=== PATIENT | female | born 1960 | race African-American/Black ===

== ENCOUNTER 2016-05-19 06:49 | Emergency (ER) | payer SELFPAY ==
--- NOTE | 2016-05-19 08:04 | ER Document Report ---
ED Oral Problem - General Mode of Arrival: Ambulatory Information source: Patient TRAVEL OUTSIDE OF THE U.S[place] IN LAST 30 DAYS: No - HPI Patient complains to provider of: Toothache Associated symptoms: Other - See above - General Chief Complaint: Toothache Stated Complaint: TOOTHACHE Notes: Patient is a 56 year old female, with a past medical history including COPD, who presents to the emergency department complaining of a toothache. Patient states that she has three teeth that have been painful. Patient has consistently had high blood pressure when seen at the emergency department for the last few years, patient reports this is due to the stress of coming to this location and reports she has a home blood pressure monitor which she can use. ( DONG LUIS) - Related Data Allergies/Adverse Reactions: No Known Allergies Allergy (Verified 05/19/16 06:59) Past Medical History - General Information source: Patient - Social History Smoking Status: Never Smoker Chew tobacco use (# tins/day): No Frequency of alcohol use: Occasional Drug Abuse: None Family History: Reviewed & Not Pertinent, Arthritis, CAD, DM, Hyperlipidemia, Malignancy Patient has suicidal ideation: No Patient has homicidal ideation: No - Past Medical History Cardiac Medical History: Pulmonary Medical History: Reports: Hx Asthma, Hx Bronchitis, Hx COPD Musculoskeltal Medical History: Reports Hx Arthritis, Reports Hx Muscle Spasm Past Surgical History: Reports: Hx Abdominal Surgery - hernia, Hx Section, Hx Gynecologic Surgery - hyst/ x1, Hx Herniorrhaphy - Umbilical hernia repair, Hx Hysterectomy, Hx Orthopedic Surgery - ganglian cyst l wrist - Immunizations Immunizations up to date: Yes Hx Diphtheria, Pertussis, Tetanus Vaccination: Yes Review of Systems - Review of Systems Constitutional: No symptoms reported EENT: See HPI, Dental problem Cardiovascular: No symptoms reported Respiratory: No symptoms reported Gastrointestinal: No symptoms reported Genitourinary: No symptoms reported Female Genitourinary: No symptoms reported Musculoskeletal: No symptoms reported Skin: No symptoms reported Hematologic/Lymphatic: No symptoms reported Neurological/Psychological: No symptoms reported -: Yes All other systems reviewed and negative Physical Exam - Vital signs Interpretation: Normal - General General appearance: Appears well, Alert - HEENT Head: Normocephalic, Atraumatic Mouth/Lips: Other - Right upper lateral incisor is borken off at the gum line, decayed, and tender. Both lower third molars are decayed and tender - Respiratory Respiratory status: No respiratory distress Chest status: Nontender Breath sounds: Normal Chest palpation: Normal - Cardiovascular Rhythm: Regular Heart sounds: Normal auscultation Murmur: No - Back Back: Normal, Nontender - Extremities General upper extremity: Normal inspection, Normal ROM, Normal strength General lower extremity: Normal inspection, Normal ROM, Normal strength, Normal weight bearing - Neurological Neuro grossly intact: Yes Cognition: Normal Orientation: AAOx4 [place]elyn Coma Scale Eye Opening: Spontaneous Madelyn Coma Scale Verbal: Oriented [place] Coma Scale Motor: Obeys Commands Madelyn Coma Scale Total: 15 Speech: Normal Motor strength normal: LUE, RUE, LLE, RLE - Psychological Associated symptoms: Normal affect, Normal mood - Skin Skin Temperature: Warm Skin Moisture: Dry Skin Color: Normal - Vital signs Vitals: Temp Pulse Resp BP Pulse Ox 98.3 F 92 18 158/99 H 98 05/19/16 06:54 05/19/16 06:54 05/19/16 06:54 05/19/16 06:54 05/19/16 06:54 (HARINDER GUILLEN) (DONG LUIS) Discharge - Discharge Clinical Impression: Dental decay High blood pressure Qualifiers: Hypertension type: essential hypertension Qualified Code(s): I10 - Essential ( primary) hypertension Additional Instructions: Dental Infection or Abscess: You have an infection, perhaps an abscess (pus formation) of the gum around one of your teeth, which is probably decayed. If there is an abscess, it may drain on its own or it may need to be opened or lanced. Severe swelling or drainage around a tooth usually means a deep dental abscess which usually requires evaluation and treatment by a dentist or oral surgeon. Antibiotics may be prescribed while awaiting dental treatment. If you develop high fever with chills, worsening pain, or increasing swelling in the area, see a dentist or oral surgeon immediately or return to the Emergency Department immediately. High Blood Pressure: When your blood pressure was taken today it was elevated. Today's reading was__158/99_. Pre-hypertension/Hypertension: The patient has been informed that they may have pre-hypertension or Hypertension based on a blood pressure reading in the emergency department. I recommend that the patient call the primary care provider listed on their dischargge instructions or a physician of their choice this wee to arrage follow up for further evaluation of possible pre- hypertension or Hypertension. Sometimes, stress or illness causes a temporary elevation of your blood pressure. We suggest that you get your blood pressure measured three more times during the next few days to see if this is more than a temporary abnormality. If your blood pressure is greater than 150/90 on each occasion, you must have treatment. Some simple things you can do to help are: If you have blood pressure medicine but aren't using it regularly, start taking it again. Get some aerobic exercise for at least 20 minutes on a daily basis. (See your doctor before beginning a new exercise program.) Eat a low-fat diet. Lose excess weight. Avoid salty foods and avoid adding salt to any of the foods you eat. Avoid diet pills, decongestants, "energizing" herbs, and other medicines that elevate blood pressure. If left untreated, hypertension greatly enhances your risk for developing heart disease and strokes. Please don't ignore this problem. TAKE THE MEDICATION PRESCRIBED FOR DENTAL INFECTION. TAKE MOTRIN OR ALEVE FOR PAIN. YOUR BLOOD PRESSURE HAS BEEN ELEVATED WHEN YOU COME TO THE ER FOR SEVERAL YEARS. CHECK YOUR BLOOD PRESSURE AT HOME, IF IT REMAINS HIGH YOU SHOULD SEE A LOCAL MEDICAL DOCTOR FOR TREATMENT. FOLLOW UP WITH A DENTIST TO TREAT YOUR DENTAL DISEASE. RETURN TO THE EMERGENCY ROOM IF ANY NEW OR WORSENING SYMPTOMS. Prescriptions: Penicillin V Potassium [Penicillin Vk 500 mg Tablet] 500 mg PO QID #28 tablet Scribe Attestation: 05/19/16 08:08 I personally performed the services described in the documentation, reviewed and edited the documentation which was dictated to the scribe in my presence, and it accurately records my words and actions. (HARINDER GUILLEN) Scribe Documentation - Scribe Written by Rema:: REMA MEYERS 05/19/16814 Acting as scribe for: Dr. Guillen (DONG LUIS)
[2016-05-19 08:39] VITALS: BP 138/98
== END 2016-05-19 08:39 | disposition home or self-care (01) ==
LOC: ER 06:49
DX: K02.9 Dental caries, unspecified (principal); I10 Essential (primary) hypertension; K08.89 Other specified disorders of teeth and supporting structures; J44.9 Chronic obstructive pulmonary disease, unspecified
CPT/HCPCS: 99282

== ENCOUNTER 2017-01-24 09:13 | Emergency (ER) | payer SELFPAY ==
[2017-01-24] MEDS ORDERED: PENICILLIN V POTASSIUM 500 MG TABLET PO ONE (10:19)
[2017-01-24] MEDS ORDERED: LIDOCAINE 2% VISCOUS SOLN 20 ML UDCUP PO ONE (10:19)
--- NOTE | 2017-01-24 10:30 | ER Document Report ---
ED Oral Problem - General Chief Complaint: Mouth Problem Stated Complaint: MOUTH PAIN Time Seen by Provider: 01/24/17 10:09 Mode of Arrival: Ambulatory Information source: Patient Notes: 56-year-old female presents to ED for complaint of pain in her left lower jaw for a cavity that has been there for over a month with pain off and on. She is patient states she just needs antibiotics she does not need pain medicine she has pain medicine. TRAVEL OUTSIDE OF THE U.S[place] IN LAST 30 DAYS: No - HPI Patient complains to provider of: Toothache Onset: Other - Over a month Onset: Gradual Quality of pain: Sharp - Sharp at times states she is not having pain at this moment Severity: Moderate Pain Level: 3 - None at this time Associated symptoms: Toothache - Cavity Worsened by: Cold Similar symptoms previously: Yes Recently seen / treated by doctor/dentist: No - Related Data Allergies/Adverse Reactions: No Known Allergies Allergy (Verified 01/24/17 09:16) Past Medical History - General Information source: Patient - Social History Smoking Status: Former Smoker Cigarette use (# per day): No Chew tobacco use (# tins/day): No Smoking Education Provided: No Frequency of alcohol use: None Drug Abuse: None Lives with: Alone Family History: Reviewed & Not Pertinent, Arthritis, CAD, DM, Hyperlipidemia, Malignancy. denies: COPD, CVA Patient has suicidal ideation: No Patient has homicidal ideation: No - Past Medical History Cardiac Medical History: Reports: None Pulmonary Medical History: Reports: Hx Asthma, Hx Bronchitis, Hx COPD EENT Medical History: Reports: None Neurological Medical History: Reports: None Endocrine Medical History: Reports: None Renal/ Medical History: Reports: None Malignancy Medical History: Reports: None GI Medical History: Reports: None Musculoskeltal Medical History: Reports Hx Arthritis, Reports Hx Muscle Spasm Skin Medical History: Reports None Psychiatric Medical History: Reports: None Traumatic Medical History: Reports: None Infectious Medical History: Reports: None Past Surgical History: Reports: Hx Abdominal Surgery - hernia, Hx Section, Hx Gynecologic Surgery - hyst/ x1, Hx Herniorrhaphy - Umbilical hernia repair, Hx Hysterectomy, Hx Orthopedic Surgery - ganglian cyst l wrist - Immunizations Immunizations up to date: Yes Hx Diphtheria, Pertussis, Tetanus Vaccination: Yes Review of Systems - Review of Systems Constitutional: No symptoms reported EENT: Dental problem Cardiovascular: No symptoms reported Respiratory: No symptoms reported Gastrointestinal: No symptoms reported Genitourinary: No symptoms reported Female Genitourinary: No symptoms reported Musculoskeletal: No symptoms reported Skin: No symptoms reported Hematologic/Lymphatic: No symptoms reported Neurological/Psychological: No symptoms reported -: Yes All other systems reviewed and negative Physical Exam - Vital signs Vitals: Temp Pulse Resp BP Pulse Ox 98.8 F 89 18 175/115 H 98 01/24/17 09:01/24/17 09:01/24/17 09:01/24/17 09:01/24/17 09:15 Interpretation: Normal - General General appearance: Appears well, Alert - HEENT Head: Normocephalic, Atraumatic Eyes: Normal Pupils: PERRL Mouth/Lips: Caries - Left lower jaw cavity Pharynx: Normal Neck: Normal - Respiratory Respiratory status: No respiratory distress Chest status: Nontender Breath sounds: Normal Chest palpation: Normal - Cardiovascular Rhythm: Regular Heart sounds: Normal auscultation Murmur: No - Abdominal Inspection: Normal Distension: No distension Bowel sounds: Normal Tenderness: Nontender Organomegaly: No organomegaly - Back Back: Normal, Nontender - Extremities General upper extremity: Normal inspection, Nontender, Normal color, Normal ROM , Normal temperature General lower extremity: Normal inspection, Nontender, Normal color, Normal ROM , Normal temperature, Normal weight bearing. No: Cyndi's sign - Neurological Neuro grossly intact: Yes Cognition: Normal Orientation: AAOx4 [place] Coma Scale Eye Opening: Spontaneous Madelyn Coma Scale Verbal: Oriented [place] Coma Scale Motor: Obeys Commands Madelyn Coma Scale Total: 15 Speech: Normal Motor strength normal: LUE, RUE, LLE, RLE Sensory: Normal - Psychological Associated symptoms: Normal affect, Normal mood - Skin Skin Temperature: Warm Skin Moisture: Dry Skin Color: Normal Course - Re-evaluation Re-evalutation: 01/24/17 11:42 Patient was treated with Pen-Vee K and she was offered lidocaine viscus for her to see put some on her tooth and and said she did not want any more of that and through the rest of it away. She states she can take her pain medicine for her tooth. Patient was instructed to follow-up with a dentist to get this tooth treated as it would not go away with the antibiotics that was just a temporary fix. - Vital Signs Vital signs: Temp Pulse Resp BP Pulse Ox 98.6 F 72 18 160/96 H 97 01/24/17 10:32 01/24/17 10:32 01/24/17 10:32 01/24/17 10:32 01/24/17 10:32 Discharge - Discharge Clinical Impression: Pain due to dental caries Condition: Stable Disposition: HOME, SELF-CARE Additional Instructions: TOOTHACHE: Your pain is due to dental decay. The tooth must be repaired in order for you to feel better. You will, therefore, be referred to a dentist. We do not have dentists on the staff at [facility]. Severe swelling or drainage around a tooth usually means a dental abscess. This also requires evaluation and treatment by the dentist, but antibiotics may be prescribed while awaiting dental treatment. You should be rechecked immediately if you develop major swelling of the face, increasing pain, a lump in the jaw or gums, headache, difficulty swallowing, or fever. PENICILLIN V K: You have been given a prescription for Penicillin VK. Your physician has determined that this is the best antibiotic for your condition. Pen VK can be taken with meals, however more of the antibiotic gets into the bloodstream if it's taken on an empty stomach. Penicillin usually has no side effects. However, allergy to penicillins is common. If you have had an allergic reaction to any drug of the penicillin family, you should never take any other penicillin. Notify your doctor at once if you develop hives, itching, swelling, faintness, or shortness of breath. Apply a small amount of lidocaine to the affected tooth every 3-4 hours as needed for pain. This will make your lips and sometimes her tongue a little bit numb so be careful eating after using this. Be sure to follow-up with the dentist as soon as possible. Please take all antibiotics as prescribed until they are all gone. FOLLOW-UP CARE: You have been referred for follow-up care to the dentists listed below. Call the dentists office for an appointment as you were instructed or within the next two days. If you experience worsening or a significant change in your symptoms, notify the physician immediately or return to the Emergency Department at any time for re-evaluation. [facility] [address] Sunday mornings, by appointment [place] [id number] [place] [address] [facility] [address] [facility] [address] [facility] [address] [email or web address] [address] [place] [address] Sunday- 8:00am to 5:00 pm Will see patients from other [facility]. Charges based on income and family size and accepts Medicare, Medicaid, and Insurances Will pull molars [facility] [address] Hours of Operation 8:00 am - 4:30 pm weekdays The following dental offices accept Medicaid: [facility] Dr. Almonte Dr. Salgado Dr. Ma Dr. Miguel Marcelino Dal[place], Kelly, and Harriet oral surgery Dr. Gordon ([place]) Dr. Hammond ([place]) [facility] Drs. Sawant ([place]) Dr. Ji ([place]) [facility] Dr. Guzman ([place]) Drs. Aguilar and ([place]) Medicaid Care Line Prescriptions: Penicillin V Potassium [Penicillin Vk 500 mg Tablet] 500 mg PO BID #20 tablet
[2017-01-24 10:37] VITALS: BP 160/96
== END 2017-01-24 10:37 | disposition home or self-care (01) ==
LOC: ER 09:13
DX: K02.9 Dental caries, unspecified (principal); K08.89 Other specified disorders of teeth and supporting structures; R68.84 Jaw pain; Z87.891 Personal history of nicotine dependence
CPT/HCPCS: 99282; J3490

== ENCOUNTER 2017-07-10 05:10 | Emergency (ER) | payer SELFPAY ==
--- NOTE | 2017-07-10 07:27 | ER Document Report ---
ED General - General Chief Complaint: Toothache Stated Complaint: TOOTHACHE Time Seen by Provider: 07/10/17 06:35 Mode of Arrival: Ambulatory Information source: Patient Notes: 57-year-old female history of poor dentition presents with complaints of dental pain .Pt denies any swelling , denies any diffiuclty swallowing or breathing. pt notes she just needs antibiotics, states pain is controlled TRAVEL OUTSIDE OF THE [place] IN LAST 30 DAYS: No - HPI Onset: Last week Onset/Duration: Persistent Quality of pain: Achy Severity: Mild Pain Level: 1 Associated symptoms: Other Exacerbated by: Denies Relieved by: Denies Similar symptoms previously: Yes Recently seen / treated by doctor: No - Related Data Allergies/Adverse Reactions: No Known Allergies Allergy (Verified 01/24/17 09:16) Past Medical History - Social History Smoking Status: Former Smoker Cigarette use (# per day): No Chew tobacco use (# tins/day): No Smoking Education Provided: No Frequency of alcohol use: Occasional Family History: Reviewed & Not Pertinent, Arthritis, CAD, DM, Hyperlipidemia, Malignancy. denies: COPD, CVA Patient has suicidal ideation: No Patient has homicidal ideation: No - Past Medical History Cardiac Medical History: Pulmonary Medical History: Reports: Hx Asthma, Hx Bronchitis, Hx COPD Renal/ Medical History: Denies: Hx Peritoneal Dialysis Musculoskeltal Medical History: Reports Hx Arthritis, Reports Hx Muscle Spasm Past Surgical History: Reports: Hx Abdominal Surgery - hernia, Hx Section, Hx Gynecologic Surgery - hyst/ x1, Hx Herniorrhaphy - Umbilical hernia repair, Hx Hysterectomy, Hx Orthopedic Surgery - ganglian cyst l wrist - Immunizations Immunizations up to date: Yes Hx Diphtheria, Pertussis, Tetanus Vaccination: Yes Review of Systems - Review of Systems Notes: REVIEW OF SYSTEMS: CONSTITUTIONAL : Denies fever, chills, or sweats. Denies recent illness. EENT: Admits to dental pain CARDIOVASCULAR: Denies chest pain. Denies palpitations or racing or irregular heart beat. Denies ankle edema. RESPIRATORY: Denies cough, cold, or chest congestion. Denies shortness of breath, difficulty breathing, or wheezing. GASTROINTESTINAL: Denies abdominal pain or distention. Denies nausea, vomiting , or diarrhea. Denies blood in vomitus, stools, or per rectum. Denies black, tarry stools. Denies constipation. GENITOURINARY: Denies difficulty urinating, painful urination, burning, frequency, blood in urine, or discharge. FEMALE GENITOURINARY: Denies vaginal bleeding, heavy or abnormal periods, irregular periods. Denies vaginal discharge or odor. MUSCULOSKELETAL: Denies back or neck pain or stiffness. Denies joint pain or swelling. SKIN: Denies rash, lesions or sores. HEMATOLOGIC : Denies easy bruising or bleeding. LYMPHATIC: Denies swollen, enlarged glands. NEUROLOGICAL: Denies confusion or altered mental status. Denies passing out or loss of consciousness. Denies dizziness or lightheadedness. Denies headache. Denies weakness or paralysis or loss of use of either side. Denies problems with gait or speech. Denies sensory loss, numbness, or tingling. Denies seizures. PSYCHIATRIC: Denies anxiety or stress. Denies depression, suicidal ideation, or homicidal ideation. ALL OTHER SYSTEMS REVIEWED AND NEGATIVE. PHYSICAL EXAMINATION: GENERAL: Well-appearing, well-nourished and in no acute distress. HEAD: Atraumatic, normocephalic. EYES: Pupils equal round and reactive to light, extraocular movements intact, conjunctiva are normal. ENT: Teeth #22 and 27 tender to palpation overall poor dentition 21 fractured NECK: Normal range of motion, supple without lymphadenopathy LUNGS: Breath sounds clear to auscultation bilaterally and equal. No wheezes rales or rhonchi. HEART: Regular rate and rhythm without murmurs ABDOMEN: Soft, nontender, nondistended abdomen. No guarding, no rebound. No masses appreciated. Female : deferred Musculoskeletal: Normal range of motion, no pitting or edema. No cyanosis. NEUROLOGICAL: Cranial nerves grossly intact. Normal speech, normal gait. Normal sensory, motor exams PSYCH: Normal mood, normal affect. SKIN: Warm, Dry, normal turgor, no rashes or lesions noted. Dictation was performed using [employer] voice recognition software Physical Exam - Vital signs Vitals: Temp Pulse Resp BP Pulse Ox 98.9 F 111 H 16 177/110 H 99 07/10/17 05:13 07/10/17 05:13 07/10/17 05:13 07/10/17 05:13 07/10/17 05:13 Course - Re-evaluation Re-evalutation: 07/10/17 11:04 There are no dental abscesses no swelling noted patient's airways patent she looks well, patient will be started on antibiotics given strict follow-up with her dentist patient denies any other concerns After performing a Medical Screening Examination, I estimate there is LOW risk for a DEEP SPACE INFECTION (e.g., AMEE'S ANGINA OR RETROPHARYNGEAL ABSCESS), MENINGITIS, INTRACRANIAL HEMORRHAGE, or AIRWAY COMPROMISE, thus I consider the discharge disposition reasonable. Also, there is no evidence or peritonitis, sepsis, or toxicity. I have reevaluated this patient multiple times and no significant life threatening changes are noted. The patient and I have discussed the diagnosis and risks, and we agree with discharging home with close follow-up with the understanding that symptoms and presentations can change. We also discussed returning to the Emergency Department immediately if new or worsening symptoms occur. We have discussed the symptoms which are most concerning (e.g., changing or worsening pain, trouble swallowing or breathing, neck stiffness or fever) that necessitate immediate return. - Vital Signs Vital signs: Temp Pulse Resp BP Pulse Ox 98.9 F 86 16 167/98 H 100 07/10/17 05:13 07/10/17 07:33 07/10/17 07:33 07/10/17 07:33 07/10/17 07:33 Discharge - Discharge Clinical Impression: Pain, dental HTN (hypertension) Qualifiers: Hypertension type: essential hypertension Qualified Code(s): I10 - Essential ( primary) hypertension Condition: Stable Disposition: HOME, SELF-CARE Instructions: Penicillin V K ([facility]), Toothache ([facility]) Additional Instructions: Please follow-up with your dentist in 1 week or return immediately if there is any worsening symptoms or any other concerns Prescriptions: Penicillin V Potassium [Penicillin Vk 250 mg Tablet] 500 mg PO Q6 #80 tablet Penicillin V Potassium [Penicillin Vk 500 mg Tablet] 500 mg PO QID #40 tablet
[2017-07-10 07:37] VITALS: BP 167/98
== END 2017-07-10 07:37 | disposition home or self-care (01) ==
LOC: ER 05:10
DX: K08.89 Other specified disorders of teeth and supporting structures (principal); J44.9 Chronic obstructive pulmonary disease, unspecified; I10 Essential (primary) hypertension; Z87.891 Personal history of nicotine dependence
CPT/HCPCS: 99282

== ENCOUNTER 2017-12-29 05:39 | Emergency (ER) | payer SELFPAY ==
--- NOTE | 2017-12-29 07:16 | ER Document Report ---
ED General - General Chief Complaint: Abscess Stated Complaint: POSSIBLE SPIDER BITE Time Seen by Provider: 12/29/17 06:22 TRAVEL OUTSIDE OF THE [place] IN LAST 30 DAYS: No - HPI Patient complains to provider of: Insect bite dental pain Notes: Patient coming in for depressive symptoms. He states and said by ongoing for the past 24 hours has been placing Neosporin on however came in for further evaluation concern for possible abscess formation. Patient denies any fevers chills nausea vomiting diarrhea. Patient also has dental pain. Patient has pain of tooth #28. Patient has a history of poor dentition states that she has an appointment see a dentist in approximately 2 weeks. - Related Data Allergies/Adverse Reactions: No Known Allergies Allergy (Verified 12/29/17 05:40) Past Medical History - Social History Smoking Status: Former Smoker Chew tobacco use (# tins/day): No Drug Abuse: None Family History: Reviewed & Not Pertinent, Arthritis, CAD, DM, Hyperlipidemia, Malignancy. denies: COPD, CVA Patient has suicidal ideation: No Patient has homicidal ideation: No - Past Medical History Cardiac Medical History: Pulmonary Medical History: Reports: Hx Asthma, Hx Bronchitis, Hx COPD Renal/ Medical History: Denies: Hx Peritoneal Dialysis Musculoskeletal Medical History: Reports Hx Arthritis, Reports Hx Muscle Spasm Past Surgical History: Reports: Hx Abdominal Surgery - hernia, Hx Section, Hx Gynecologic Surgery - hyst/ x1, Hx Herniorrhaphy - Umbilical hernia repair, Hx Hysterectomy, Hx Orthopedic Surgery - ganglian cyst l wrist - Immunizations Immunizations up to date: Yes Hx Diphtheria, Pertussis, Tetanus Vaccination: Yes Review of Systems - Review of Systems Constitutional: Other - Dental pain possible abscess EENT: No symptoms reported Cardiovascular: No symptoms reported Respiratory: No symptoms reported Gastrointestinal: No symptoms reported Genitourinary: No symptoms reported Female Genitourinary: No symptoms reported Musculoskeletal: No symptoms reported Skin: No symptoms reported Hematologic/Lymphatic: No symptoms reported Neurological/Psychological: No symptoms reported Physical Exam - Vital signs Vitals: Temp Pulse Resp BP Pulse Ox 98.1 F 89 20 160/99 H 100 12/29/17 05:40 12/29/17 05:40 12/29/17 05:40 12/29/17 05:40 12/29/17 05:40 Interpretation: Normal - General General appearance: Appears well, Alert - HEENT Head: Normocephalic, Atraumatic Eyes: Normal Cornea: Normal Pupils: PERRL Notes: Examination oral mucosa shows a dental fracture tooth #28 however it is nontender to palpation no signs of abscess formation no signs of gingival cellulitis. No swelling airways patent - Respiratory Respiratory status: No respiratory distress Chest status: Nontender Breath sounds: Normal Chest palpation: Normal - Cardiovascular Rhythm: Regular Heart sounds: Normal auscultation Murmur: No - Abdominal Inspection: Normal Distension: No distension Bowel sounds: Normal Tenderness: Nontender Organomegaly: No organomegaly - Back Back: Normal, Nontender - Extremities General upper extremity: Normal inspection, Nontender, Normal color, Normal ROM , Normal temperature General lower extremity: Normal inspection, Nontender, Normal color, Normal ROM , Normal temperature, Normal weight bearing. No: Cyndi's sign - Neurological Neuro grossly intact: Yes Cognition: Normal Orientation: AAOx4 Westhoff Coma Scale Eye Opening: Spontaneous Madelyn Coma Scale Verbal: Oriented Madelyn Coma Scale Motor: Obeys Commands Westhoff Coma Scale Total: 15 Speech: Normal Motor strength normal: LUE, RUE, LLE, RLE Sensory: Normal - Psychological Associated symptoms: Normal affect, Normal mood - Skin Skin Temperature: Warm Skin Moisture: Dry Skin Color: Normal, Other - Patient with insect bite to the right leg lateral mid barroso region but no fluctuance slight erythema proximal 2 cm x 2 cm. Localized reaction no signs of overt infection Course - Re-evaluation Re-evalutation: 12/29/17 13:19 Patient was to have a localized reaction to possible insect bite in the lower extremity. There is no fluctuance no signs of abscess formation. Patient was encouraged to continue to Place Neosporin on the site. Patient with dental pain no signs of dental infection however patient is scheduled to see a dentist will start the patient on Pen-Vee K - Vital Signs Vital signs: Temp Pulse Resp BP Pulse Ox 98.5 F 79 16 141/96 H 99 12/29/17 07:23 12/29/17 07:23 12/29/17 07:23 12/29/17 07:23 12/29/17 07:23 Discharge - Discharge Clinical Impression: Pain, dental Insect bite Qualifiers: Encounter type: initial encounter Qualified Code(s): W57.XXXA - Bitten or stung by nonvenomous insect and other nonvenomous arthropods, initial encounter Disposition: HOME, SELF-CARE Instructions: Dentist, Penicillin V K ([facility]), Swollen Insect Bite or Sting ([facility]) Additional Instructions: Evaluation of her legs is a small insect bite. I would continue with Neosporin at home. Return if the redness worsens. Evaluation of the tooth does not reveal any signs of abscess or dental infection at this time we will prophylactically start you on penicillin VK as if you do have a dental fracture please follow-up with your dentist return to ER symptoms worsen. Prescriptions: Penicillin V Potassium [Penicillin Vk 500 mg Tablet] 500 mg PO BID #20 tablet Forms: Return to Work
[2017-12-29 07:29] VITALS: BP 141/96
== END 2017-12-29 07:25 | disposition home or self-care (01) ==
LOC: ER 05:39
DX: K08.9 Disorder of teeth and supporting structures, unspecified (principal); F17.200 Nicotine dependence, unspecified, uncomplicated; J44.9 Chronic obstructive pulmonary disease, unspecified; Z90.710 Acquired absence of both cervix and uterus
CPT/HCPCS: 99283

== ENCOUNTER 2018-06-12 06:09 | Emergency (ER) | payer SELFPAY ==
--- NOTE | 2018-06-12 07:47 | ER Document Report ---
HPI - HPI Time Seen by Provider: 06/12/18 07:31 Pain Level: 5 Notes: Patient is a 58-year-old female well-known to the emergency department who presents requesting antibiotics for dental pain to #17 tooth as it has been bothering her lately over the last 1-2 weeks, chronic intermittent spasming of her left trapezius muscle which she is requesting Robaxin for, and chronic issues with trigger finger of the right middle finger. Patient states that she currently does not have insurance and has no other concerns or complaints. Denies drug allergies. She is eating and drinking without difficulty. Denies any headache, fever, neck pain, changes in vision/speech/mentation/hearing, URI, sore throat, chest pain, palpitations, syncope, cough, shortness of breath, wheeze, dyspnea, abdominal pain, nausea/vomiting/diarrhea, urinary retention, dysuria, hematuria, loss of control of bowel or bladder, numbness/tingling, saddle anesthesia, muscle paralysis/weakness, or rash. - ROS Systems Reviewed and Negative: Yes All other systems reviewed and negative - REPRODUCTIVE Reproductive: DENIES: : - MUSCULOSKELETAL Musculoskeletal: REPORTS: Extremity pain Past Medical History - Social History Smoking Status: Never Smoker Frequency of alcohol use: Occasional Drug Abuse: None Family History: Reviewed & Not Pertinent, Arthritis, CAD, DM, Hyperlipidemia, Malignancy. denies: COPD, CVA Patient has suicidal ideation: No Patient has homicidal ideation: No - Past Medical History Cardiac Medical History: Pulmonary Medical History: Reports: Hx Asthma, Hx Bronchitis, Hx COPD Renal/ Medical History: Denies: Hx Peritoneal Dialysis Musculoskeletal Medical History: Reports Hx Arthritis, Reports Hx Muscle Spasm Past Surgical History: Reports: Hx Abdominal Surgery - hernia, Hx Section, Hx Gynecologic Surgery - hyst/ x1, Hx Herniorrhaphy - Umbilical hernia repair, Hx Hysterectomy, Hx Orthopedic Surgery - ganglian cyst l wrist - Immunizations Immunizations up to date: Yes Hx Diphtheria, Pertussis, Tetanus Vaccination: Yes Vertical Provider Document - CONSTITUTIONAL Agree With Documented VS: Yes Notes: PHYSICAL EXAMINATION: GENERAL: Well-appearing, well-nourished and in no acute distress. HEAD: Atraumatic, normocephalic. EYES: Pupils equal round and reactive to light, extraocular movements intact, sclera anicteric, conjunctiva are normal. ENT: EAC clear b/l. TM's intact b/l without erythema, fluid, or perforation. Nares patent and without discharge. oropharynx clear without exudates. No tonsilar hypertrophy or erythema. Moist mucous membranes. No sinus tenderness. Uvula midline. No palatine shift. No tongue protrusion. No respiratory compr omise. Mouth: Poor dentition. + mild decay and mild gingivitis. No obvious abscess or discharge noted. No facial swelling. + tenderness to tooth #17. NECK: Normal range of motion, supple without lymphadenopathy. No rigidity/meningismus. LUNGS: Breath sounds clear to auscultation bilaterally and equal. No wheezes rales or rhonchi. HEART: Regular rate and rhythm without murmurs, rubs, gallops. MS: Left shoulder. FROM. Strength 5+/5. + reproducible tenderness to left trap mm with noted mild spasming. N/V intact distal. No bony tenderness. Rt middle finger: No obvious locking noted on exam, pt does have noted OA to the joints of her hand at the PIP. Non-tender. No erythema/warmth. NEUROLOGICAL: Cranial nerves grossly intact. Normal speech, normal gait. Normal sensory, motor exams PSYCH: Normal mood, normal affect. SKIN: Warm, Dry, normal turgor, no rashes or lesions noted. - INFECTION CONTROL TRAVEL OUTSIDE OF THE [place] IN LAST 30 DAYS: No Course - Re-evaluation Re-evalutation: 06/12/18 07:45 Patient is an afebrile, well-hydrated, 58-year-old female who presents the emergency department with acute on chronic conditions of dental pain March 23, possible nerve etiology versus infection, muscle spasming to the left trapezius muscle, and chronic issues with trigger finger to her right third digit. PE is otherwise unremarkable for any neurovascular, otherwise, obvious tendon/ligament rupture, obvious fracture/dislocation, septic joint. No I&D, labs, or imaging warranted at this time based on H&P. I will send her home with a prescription for penicillin. Finger splint was provided today and conservative measures reviewed. I will also be sending her home with Robaxin. Low suspicion for any meningitis, sepsis, peritonsillar/pharyngeal abscess, respiratory compromise, Silas's, temporal arteritis, or other emergent systemic condition at this time. Patient is aware this condition can change from initial presentation and she needs to monitor symptoms closely. Conservative measures otherwise for symptoms. Call to schedule an appointment with a dentist for further evaluation and management. Recheck with your PCM this week as well. Scheduled appointment with orthopedics. Return to the ED with any worsening/concerning symptoms otherwise as reviewed in discharge. Patient is in agreement. - Vital Signs Vital signs: Temp Pulse Resp BP Pulse Ox 98.2 F 87 16 145/95 H 98 06/12/18 06:29 06/12/18 06:29 06/12/18 06:29 06/12/18 06:29 06/12/18 06:29 Discharge - Discharge Clinical Impression: Finger pain, right, Pain, dental, Trapezius muscle spasm Condition: Stable Disposition: HOME, SELF-CARE Instructions: Penicillin V K (OM), Toothache (OM) Additional Instructions: Rest, ice, compression, elevation [place] and floss twice daily Maintain fluid intake Take antibiotics as directed Mouthwash, salt water gargles, peroxide rinse as needed Tylenol/ibuprofen as needed Recheck with PCM this week Call today/tomorrow and schedule an appointment with your dentist for further evaluation Return to the ED with any worsening symptoms and/or development of fever, headache, facial swelling, swelling of lips/tongue/throat, trouble swallowing, drooling, hoarseness, neck pain/stiffness, chest pain, palpitations, syncope, shortness of breath, trouble breathing, abdominal pain, n/v/d, numbness/tingling, or other worsening symptoms that are concerning to you. Prescriptions: Methocarbamol [Robaxin] 500 mg PO TID PRN #20 tablet PRN Reason: Penicillin V Potassium [Penicillin Vk 250 mg Tablet] 500 mg PO BID #40 tablet Forms: Elevated Blood Pressure Referrals: [facility] [Provider Group] - Follow up as needed [facility] [Provider Group] - Follow up as needed
[2018-06-12 07:59] VITALS: BP 143/91
== END 2018-06-12 07:59 | disposition home or self-care (01) ==
LOC: ER 06:09
DX: K08.89 Other specified disorders of teeth and supporting structures (principal); M79.644 Pain in right finger(s); M62.830 Muscle spasm of back; Z79.899 Other long term (current) drug therapy; J44.9 Chronic obstructive pulmonary disease, unspecified
CPT/HCPCS: 99283

== ENCOUNTER 2018-09-13 04:01 | Emergency (ER) | payer OTHER ==
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
[2018-09-13] MEDS ORDERED: PENICILLIN V POTASSIUM 500 MG TABLET PO ONE (10:52)
[2018-09-13 11:06] VITALS: BP 155/93
== END 2018-09-13 11:19 | disposition home or self-care (01) ==
LOC: ER 04:01
DX: S16.1XXA Strain of muscle, fascia and tendon at neck level, initial encounter (principal); K04.7 Periapical abscess without sinus; M54.5 Low back pain; V49.50XA Passenger injured in collision with unspecified motor vehicles in traffic accident, initial encounter; Z90.710 Acquired absence of both cervix and uterus
CPT/HCPCS: 99282

== ENCOUNTER 2018-09-17 11:23 | Emergency (ER) | payer OTHER ==
[2018-09-17 11:38] VITALS: BP 141/96
--- NOTE | 2018-09-17 12:31 | ER Document Report ---
HPI - HPI Time Seen by Provider: 09/17/18 11:51 Pain Level: Denies Context: Patient is a 58-year-old female who presents to the emergency department with a chief complaint of a possible bug bite on her left buttock. She noticed that she had about 5 to 6 days ago. She stated that the blister had popped on Sunday she had been applying peroxide and alcohol to help clean the area. She denies any fever, or any other symptoms. She has a past medical history of a C- section and hysterectomy. She has recently been on insulin for tooth pain. - CONSTITUTIONAL Constitutional: DENIES: Fever, Chills - EENT EENT: DENIES: Sore Throat - NEURO Neurology: DENIES: Headache - CARDIOVASCULAR Cardiovascular: DENIES: Chest pain - RESPIRATORY Respiratory: DENIES: Trouble Breathing, Coughing - GASTROINTESTINAL Gastrointestinal: DENIES: Abdominal Pain - REPRODUCTIVE Reproductive: DENIES: : - MUSCULOSKELETAL Musculoskeletal: DENIES: Extremity pain - DERM Notes: See HPI Past Medical History - General Information source: Patient - Social History Smoking Status: Never Smoker Frequency of alcohol use: None Drug Abuse: None Family History: Reviewed & Not Pertinent, Arthritis, CAD, DM, Hyperlipidemia, Malignancy. denies: COPD, CVA - Past Medical History Cardiac Medical History: Pulmonary Medical History: Reports: Hx Asthma, Hx Bronchitis, Hx COPD Renal/ Medical History: Denies: Hx Peritoneal Dialysis Musculoskeletal Medical History: Reports Hx Arthritis, Reports Hx Muscle Spasm Past Surgical History: Reports: Hx Abdominal Surgery - hernia, Hx Section, Hx Gynecologic Surgery - hyst/ x1, Hx Herniorrhaphy - Umbilical hernia repair, Hx Hysterectomy, Hx Orthopedic Surgery - ganglian cyst l wrist - Immunizations Immunizations up to date: Yes Hx Diphtheria, Pertussis, Tetanus Vaccination: Yes Vertical Provider Document - CONSTITUTIONAL Agree With Documented VS: Yes Exam Limitations: No Limitations General Appearance: No Apparent Distress - INFECTION CONTROL TRAVEL OUTSIDE OF THE [place] IN LAST 30 DAYS: No - HEENT HEENT: Atraumatic, Normocephalic, PERRLA - NECK Neck: Normal Inspection - RESPIRATORY Respiratory: Breath Sounds Normal, No Respiratory Distress - CARDIOVASCULAR Cardiovascular: Regular Rate, Regular Rhythm Pulses: Normal: Radial - MUSCULOSKELETAL/EXTREMETIES Musculoskeletal/Extremeties: FROM - NEURO Level of Consciousness: Awake, Alert, Appropriate Motor/Sensory: No Motor Deficit, No Sensory Deficit - DERM Integumentary: Warm, Dry Notes: Less than 1 cm healing stage II decubiti ulcer noted to left buttock at [facility] area Course - Re-evaluation Re-evalutation: 09/17/18 12:32 SITA Howe accompanied me during the patient's physical exam of her buttock. Patient's physical exam is consistent with a stage II decubitus ulcer on her left buttock. Patient is rather thin and states that she does sit a lot during the day, as she does take care of her mother. I have advised her to follow-up with the [facility]. I do not suspect the patient has cellulitis, necrotizing osteitis, or any life-threatening etiology at this time. I have advised the patient to get up periodically during the day so she does not develop any other sores. She is in agreement with this plan. Verbal discharge instructions were given to the patient. They verbalized understanding. They are stable for discharge. - Vital Signs Vital signs: Temp Pulse Resp BP Pulse Ox 98.9 F 91 17 141/96 H 100 09/17/18 11:35 09/17/18 11:35 09/17/18 11:35 09/17/18 11:35 09/17/18 11:35 Discharge - Discharge Clinical Impression: Pressure sore on buttocks Qualifiers: Pressure injury stage: stage 2 Laterality: left Qualified Code(s): L89.322 - Pressure ulcer of left buttock, stage 2 Condition: Stable Disposition: HOME, SELF-CARE Additional Instructions: You are seen today for a spots on your buttock. You have a sore on your left buttock. It is healing well. Please get up periodically during the day and do not sit for long periods of time, as this may cause more sores in the future. Please follow-up with the [facility] in regards to this visit. Referrals: [facility] [Provider Group] - Follow up in 3-5 days
== END 2018-09-17 12:35 | disposition home or self-care (01) ==
LOC: ER 11:23
DX: L89.322 Pressure ulcer of left buttock, stage 2 (principal); J44.9 Chronic obstructive pulmonary disease, unspecified; Z90.710 Acquired absence of both cervix and uterus
CPT/HCPCS: 99281

== ENCOUNTER → 2018-12-26 | Outpatient (CLI) | payer OTHER ==
[2018-12-26 09:12] LABS: ABSOLUTE LYMPHOCYTES (AUTO) 1.3 10^3/uL (0.5-4.7); ABSOLUTE MONOCYTES (AUTO) 0.3 10^3/uL (0.1-1.4); ABSOLUTE NEUT (AUTO) 3.4 10^3/uL (1.7-8.2); BASOPHILS % (AUTO) 0.7 % (0-2); EOSINOPHILS % (AUTO) 0.8 % (0-6); HEMATOCRIT 39.5 % (36.0-47.0); HEMOGLOBIN 13.4 g/dL (12.0-15.5); LYMPHOCYTES % (AUTO) 24.9 % (13-45); MEAN CORPUSCULAR HEMOGLOBIN 31.4 pg (27.0-33.4); MEAN CORPUSCULAR HGB CONC 33.9 g/dL (32.0-36.0); MEAN CORPUSCULAR VOLUME 93 fl (80-97); MONOCYTES % (AUTO) 5.9 % (3-13); PLATELET COUNT 269 10^3/uL (150-450); RED BLOOD COUNT 4.26 10^6/uL (3.72-5.28); RED CELL DISTRIBUTION WIDTH 13.2 % (11.5-14.0); SEGMENTED NEUTROPHILS % (AUTO) 67.7 % (42-78); TOTAL CELLS COUNTED % (AUTO) 100 %
[2018-12-26 09:38] LABS: ALBUMIN 4.3 g/dL (3.5-5.0); ALKALINE PHOSPHATASE 75 U/L (38-126); ANION GAP 5 (5-19); ASPARTATE AMINO TRANSFERASE 28 U/L (14-36); BILIRUBIN,DIRECT 0.2 mg/dL (0.0-0.4); BILIRUBIN,TOTAL 0.6 mg/dL (0.2-1.3); BLOOD UREA NITROGEN 12 mg/dL (7-20); CARBON DIOXIDE 31 mmol/L (22-30); CHLORIDE 104 mmol/L (98-107); CHOLESTEROL 216.55 mg/dL (0-200); GLUCOSE 95 mg/dL (75-110); POTASSIUM 4.4 mmol/L (3.6-5.0); TOTAL PROTEIN 7.1 g/dL (6.3-8.2); TRIGLYCERIDES 50 mg/dL (<150)
[2018-12-26 09:49] LABS: DIRECT LDL 124 mg/dL (<100)
== END ==
LOC: CCC 08:45
DX: Z00.00 Encounter for general adult medical examination without abnormal findings (principal)
CPT/HCPCS: 36415; 80053; 80061; 83036; 84443; 85025

== ENCOUNTER → 2019-01-07 | Outpatient (CLI) | payer OTHER ==
--- NOTE | 2019-01-07 09:45 | RADIOLOGY REPORT (SQ) ---
EXAM DESCRIPTION: CT CHEST WITHOUT COMPLETED DATE/TIME: 01/07/2019 8:17 am REASON FOR STUDY: PERSONAL HISTORY OF NICOTINE DEPENDENCE (Z87.891) F17.200 NICOTINE DEPENDENCE, UN SPECIFIED, UNCOMPLICATED Z87.891 PERSONAL HISTORY OF NICOTINE DEPENDENCE COMPARISON: None. TECHNIQUE: CT scan performed of the chest without intravenous contrast. Images reviewed with lung, soft tissue and bone windows. Reconstructed coronal and sagittal MPR images reviewed. All images st ored on PACS. All CT scanners at this facility use dose modulation, iterative reconstruction, and/or weight based d osing when appropriate to reduce radiation dose to as low as reasonably achievable (ALARA). [facility]: Dose Right [facility]: CareDose [facility]: Dose Right [facility]: Teradose 4D [facility]: Smart Prixtel RADIATION DOSE: CT Rad equipment meets quality standard of care and radiation dose reduction techniq ues were employed. CTDIvol: 2.8 mGy. DLP: 124 mGy-cm. mGy. LIMITATIONS: No technical limitations. FINDINGS: LUNGS AND PLEURA: Mild biapical pleural thickening and nodular consolidation, likely scarr ing. For reference there is a 1.0 cm area of consolidation within the right apex (series 4, image 14 ). There are scattered additional sub 6 mm pulmonary nodular and ground-glass opacities. For refer ence there is a 4 mm right upper lobe pulmonary nodule (series 4, image 27). Mild upper lobe parasep arturo emphysematous change. No dense consolidation. No discrete mass. No pleural effusion or pneumot horax. HILAR AND MEDIASTINAL STRUCTURES: No identified masses or abnormal nodes. No obvious aneurysm. HEART AND VASCULAR STRUCTURES: No aneurysm. No pericardial effusion. UPPER ABDOMEN: No significant findings. Limited exam. THYROID AND OTHER SOFT TISSUES: No masses. No adenopathy. BONES: No significant finding. HARDWARE: None in the chest. OTHER: No other significant findings. IMPRESSION: 1. Mild biapical pleural thickening and nodular consolidation, likely scarring. Consid er 6 to 12 month follow-up to ensure stability. 2. No other evidence of acute intrathoracic process. COMMENT: [facility] CRITERIA FOR FOLLOW-UP OF PULMONARY NODULES Incidentally detected new nodules in persons 35 or older. HIGH RISK: History of smoking or other known risk factors. 6-8mm single solid nodule: LOW RISK: CT 6-12 mo; then consider CT 18-24 mo. HIGH RISK: CT 6-12 mo; th en CT 18-24 mo. TECHNICAL DOCUMENTATION: JOB ID: [id number] Quality ID # [id number]: Final reports with documentation of one or more dose reduction techniques (e.g., Au tomated exposure control, adjustment of the mA and/or kV according to patient size, use of iterative reconstruction technique) 2010 [employer]- All Rights Reserved Reading location - IP/workstation name: [email or web address]
== END ==
LOC: RAD 07:55
PROVIDERS: ATTEND Family Medicine
DX: R91.1 Solitary pulmonary nodule (principal); Z09 Encounter for follow-up examination after completed treatment for conditions other than malignant neoplasm; Z87.891 Personal history of nicotine dependence
CPT/HCPCS: 71250

== ENCOUNTER → 2019-03-31 | Outpatient (CLI) | payer OTHER ==
--- NOTE | 2019-03-31 09:59 | WOMENS IMAGING REPORT ---
EXAM DESCRIPTION: PINK [place]ARRIOR BILATERAL SCREEN COMPLETED DATE/TIME: 03/31/2019 9:13 am REASON FOR STUDY: Z12.31 ENCOUNTER FOR SCREENING MAMMOGRAM FOR MALIGNANT NEOPLASM OF BREAST Z12.31 ENCNTR SCREEN MAMMOGRAM FOR MALIGNANT NEOPLASM OF FRANCIE COMPARISON: None. EXAM PARAMETERS: Standard craniocaudal and mediolateral oblique views of each breast recorded using digital acquisition. Read with the assistance of CAD. .[facility] - [employer] Version 9.2 LIMITATIONS: None. FINDINGS: No suspicious masses, suspicious calcifications or architectural distortion. No areas of c oncern. IMPRESSION: Negative MAMMOGRAM. BIRADS 1 BREAST DENSITY: d. The breasts are extremely dense, which lowers the sensitivity of mammography. BIRAD: ASSESSMENT: 1 NEGATIVE RECOMMENDATION: ROUTINE SCREENING COMMENT: The patient has been notified of the results by letter per MQSA requirements. Additional no tification policies are in place for contacting patient with suspicious or incomplete findings. Quality ID #[id number]: The [employer] recommends an annual screening mammogram for women aged 40 years or over. This facility utilizes a reminder system to ensure that all patients receive reminder letters, and/or direct phone calls for appointments. This includes reminders for routine scr eening mammograms, diagnostic mammograms, or other Breast Imaging Interventions when appropriate. Th is patient will be placed in the appropriate reminder system. TECHNICAL DOCUMENTATION: FINDING NUMBER: (1) ASSESSMENT: (1) JOB ID: [id number] [employer]- All Rights Reserved Reading location - IP/workstation name: [email or web address]
== END ==
LOC: WI 08:34
PROVIDERS: ATTEND Family Medicine
DX: Z12.31 Encounter for screening mammogram for malignant neoplasm of breast (principal)
CPT/HCPCS: 77067

== ENCOUNTER 2019-10-30 18:27 | Emergency (ER) | payer OTHER ==
[2019-10-30 18:37] VITALS: BP 152/92
--- NOTE | 2019-10-30 19:09 | ER Document Report ---
HPI - HPI Patient complains to provider of: Tooth ache Time Seen by Provider: 10/30/19 19:07 Onset: Last week Onset/Duration: Waxing and waning Quality of pain: Achy Pain Level: 5 Associated Symptoms: None Exacerbated by: Denies Similar symptoms previously: No Recently seen / treated by doctor: No - REPRODUCTIVE Reproductive: DENIES: : Past Medical History - General Information source: Patient - Social History Smoking Status: Former Smoker Cigarette use (# per day): No Chew tobacco use (# tins/day): No Smoking Education Provided: No Frequency of alcohol use: Social Drug Abuse: None Family History: Reviewed & Not Pertinent, Arthritis, CAD, DM, Hyperlipidemia, Malignancy Patient has homicidal ideation: No - Past Medical History Cardiac Medical History: Pulmonary Medical History: Reports: Hx Asthma, Hx Bronchitis, Hx COPD Renal/ Medical History: Denies: Hx Peritoneal Dialysis Musculoskeletal Medical History: Reports Hx Arthritis, Reports Hx Muscle Spasm Past Surgical History: Reports: Hx Abdominal Surgery - hernia, Hx Section, Hx Gynecologic Surgery - hyst/ x1, Hx Herniorrhaphy - Umbilical hernia repair, Hx Hysterectomy, Hx Orthopedic Surgery - ganglian cyst l wrist - Immunizations Immunizations up to date: Yes Hx Diphtheria, Pertussis, Tetanus Vaccination: Yes Vertical Provider Document - CONSTITUTIONAL Agree With Documented VS: Yes - INFECTION CONTROL TRAVEL OUTSIDE OF THE [place] IN LAST 30 DAYS: No - HEENT HEENT: Atraumatic, Conjuctival Injection, Dental Injury - This is a 39-year-old female who has decay to several teeth in her lower gumline she is try to get in to see a dentist simply requesting antibiotics there is no abscess noted., Normocephalic, PERRLA - NECK Neck: Normal Inspection, Supple - RESPIRATORY Respiratory: Breath Sounds Normal, No Respiratory Distress - CARDIOVASCULAR Cardiovascular: Regular Rate, Regular Rhythm - GI/ABDOMEN Gastrointestinal: Abdomen Soft, Abdomen Non-Tender - BACK Back: Normal Inspection Course - Vital Signs Vital signs: Temp Pulse Resp BP Pulse Ox 97.9 F 76 16 152/92 H 99 10/30/19 19:00 10/30/19 18:35 10/30/19 18:35 10/30/19 18:35 10/30/19 18:35 Discharge - Discharge Clinical Impression: Dentalgia Disposition: HOME, SELF-CARE Prescriptions: Penicillin V Potassium [Penicillin Vk 500 mg Tablet] 500 mg PO BID #20 tablet Referrals: NITHIN BORGES MD [Primary Care Provider] - Follow up as needed
== END 2019-10-30 19:15 | disposition home or self-care (01) ==
LOC: ER 18:27
DX: K08.89 Other specified disorders of teeth and supporting structures (principal); Z87.891 Personal history of nicotine dependence; J44.9 Chronic obstructive pulmonary disease, unspecified
CPT/HCPCS: 99282

== ENCOUNTER 2019-11-17 21:08 | Emergency (ER) | payer OTHER ==
[2019-11-17] MEDS ORDERED: DIPH/PERTUSS(ACELL)/TETANUS VAC/PF 0.5 ML SYR (>=10YO) IM ONE (22:21)
--- NOTE | 2019-11-17 22:23 | ER Document Report ---
HPI - HPI Time Seen by Provider: 11/17/19 22:21 Pain Level: 2 Notes: Otherwise healthy 59-year-old female with laceration to her left wrist area. Patient reports she was helping change a tire when she hit her arm into a piece of glass. - ROS Systems Reviewed and Negative: Yes All other systems reviewed and negative - REPRODUCTIVE Reproductive: DENIES: : - DERM Skin Problems: Laceration Past Medical History - General Information source: Patient - Social History Smoking Status: Current Every Day Smoker Chew tobacco use (# tins/day): No Frequency of alcohol use: Rare Drug Abuse: None Family History: Reviewed & Not Pertinent, Arthritis, CAD, DM, Hyperlipidemia, Malignancy - Past Medical History Cardiac Medical History: Pulmonary Medical History: Reports: Hx Asthma, Hx Bronchitis, Hx COPD Renal/ Medical History: Denies: Hx Peritoneal Dialysis Musculoskeletal Medical History: Reports Hx Arthritis, Reports Hx Muscle Spasm Past Surgical History: Reports: Hx Abdominal Surgery - hernia, Hx Section, Hx Gynecologic Surgery - hyst/ x1, Hx Herniorrhaphy - Umbilical hernia repair, Hx Hysterectomy, Hx Orthopedic Surgery - ganglian cyst l wrist - Immunizations Immunizations up to date: Yes Hx Diphtheria, Pertussis, Tetanus Vaccination: Yes Vertical Provider Document - CONSTITUTIONAL Notes: PHYSICAL EXAMINATION: GENERAL: Well-appearing, well-nourished and in no acute distress. HEAD: Atraumatic, normocephalic. EYES: Pupils equal round extraocular movements intact, conjunctiva are normal. ENT: Nares patent NECK: Normal range of motion LUNGS: No respiratory distress Musculoskeletal: Normal range of motion NEUROLOGICAL: Normal speech, normal gait. PSYCH: Normal mood, normal affect. SKIN: 1 cm laceration to left distal wrist on the dorsal surface. Superficial, approximates well. - INFECTION CONTROL TRAVEL OUTSIDE OF THE [place] IN LAST 30 DAYS: No Course - Re-evaluation Re-evalutation: Laceration repaired with Dermabond. Tetanus updated. Patient will be discharged home at this time. - Vital Signs Vital signs: Temp Pulse Resp BP Pulse Ox 98.7 F 89 16 150/100 H 100 11/17/19 22:16 11/17/19 21:28 11/17/19 21:28 11/17/19 21:28 11/17/19 21:28 Procedures - Laceration/Wound Repair Left wrist Wound length (cm): 1 Wound's Depth, Shape: Superficial Wound explored: Clean Wound Repaired With: Dermabond Discharge - Discharge Clinical Impression: Laceration Condition: Stable Disposition: HOME, SELF-CARE Additional Instructions: Dermabond (Skin Adhesive Closure) Skin adhesive (such as Dermabond) is a quick-drying glue that remains slightly flexible while it holds wound edges together. It can substitute for stitches on some cuts. The film will usually fall off the skin after 5 to 10 days. Keep the wound area clean and dry. Do not soak or scrub the wound. Don't swim. You can shower briefly after 24 hours. Gently blot the area dry with a soft towel. Don't apply ointments. If there is a dressing, change it immediately if it gets wet. Do not place tape directly over the adhesive film, because the tape may pull the film off your skin as you remove it. Don't bump the wound area. If there's risk of injury, keep the area well- padded. Avoid stretching of the skin. Do not scratch or pick at the adhesive film. Avoid prolonged exposure to sunlight or tanning lamps. Return if there is increasing pain, swelling, redness, or drainage, or if the wound edges seem to open or separate. Tetanus Immunization Given You have been given an immunization against tetanus. Please record this in your records. In general, a booster is needed only once every 10 years. The tetanus shot protects against tetanus or "lockjaw," which is a complication of certain wound infections (the tetanus shot cannot protect against the actual infection). The immunization site may become warm and red due to local reaction. If this occurs, apply warm compresses and take aspirin or ibuprofen to reduce inflammation and discomfort. Return for evaluation if the reaction becomes severe. Prescriptions: Penicillin V Potassium [Penicillin Vk 500 mg Tablet] 500 mg PO BID #20 tablet Referrals: [facility] [Primary Care Provider] - Follow up as needed
[2019-11-17 22:36] VITALS: BP 149/95
== END 2019-11-17 22:35 | disposition home or self-care (01) ==
LOC: ER 21:08
DX: S61.512A Laceration without foreign body of left wrist, initial encounter (principal); W25.XXXA Contact with sharp glass, initial encounter; F17.200 Nicotine dependence, unspecified, uncomplicated; J44.9 Chronic obstructive pulmonary disease, unspecified; Z23 Encounter for immunization
CPT/HCPCS: 90471; 90715; 99282